=== PATIENT | female | born 1940 | race Two or more races ===

== ENCOUNTER 2016-07-16 20:13 | Inpatient (IN) | payer MEDICARE, MEDICAID ==
[~2016-07-16] VITALS: Ht 124.5 cm; Wt 54.4 kg
[~2016-07-16 20:13] MED LIST: ACETAMINOPHEN-1 EAC1 ORAL; AMBIEN10 M1 ORAL; AMLODIPINE BESYL5 MG ORAL; ASPIRIN81 M3 PO; AZOR 10-40 MG1 EACH ORAL; BENTYL10 MG ORAL; CARVEDILOL6.25 MG ORAL; FLONASE1 SPRAYS NASAL; FUROSEMIDE80 M1 ORAL; FUROSEMIDE80 MG ORAL; LINZESS290 MCG PO; LIPITOR20 MG ORAL; MONTELUKAST SOD10 MG ORAL; OMEPRAZOLE20 M2 ORAL; ROBAXIN500 MG PO; TRAMADOL HCL50 MG ORAL; TRIBENZOR 40-51 EACH ORAL; VITAMIN D5000 UNI1 PO; XANAX0.25 MG ORAL
[2016-07-16 20:59] VITALS: BP 187/82
[2016-07-16] MEDS ORDERED: Ketorolac 30mg Inj IV ONE (21:15)
[2016-07-16 22:14] LABS: APPEARANCE,URINE SLIGHTLY CLOUDY; BASOPHILS % (AUTO) 0.5 % (0.0-2.0); EOSINOPHILS % (AUTO) 1.1 % (0.0-3.0); KETONES,URINE NEGATIVE (NEGATIVE); LEUKOCYTE ESTERASE ,URINE NEGATIVE (NEGATIVE); LYMPHOCYTES % (AUTO) 25.5 % (20.0-45.0); MEAN CORPUSCULAR HEMOGLOBIN 31.3 PG (27.0-31.0); MEAN CORPUSCULAR HGB CONC 35.4 G/DL (32.0-36.0); MEAN CORPUSCULAR VOLUME 88 FL (80-99); MEAN PLATELET VOLUME 5.4 FL (6.5-10.1); MONOCYTES % (AUTO) 13.5 % (1.0-10.0); NEUTROPHILS % (AUTO) 59.5 % (45.0-75.0); NITRITE,URINE NEGATIVE (NEGATIVE); PH,URINE 8 (4.5-8.0); PLATELET COUNT 293 K/UL (150-450); PROTEIN,URINE NEGATIVE (NEGATIVE); RED BLOOD COUNT 3.58 M/UL (4.20-5.40); RED CELL DISTRIBUTION WIDTH 10.7 % (11.6-14.8); UROBILINOGEN,URINE NORMAL MG/DL (0.0-1.0); WHITE BLOOD COUNT 6.1 K/UL (4.8-10.8)
[2016-07-16 22:30] LABS: BACTERIA,URINE FEW /HPF; RBC,URINE 20-30 /HPF (0 - 2); SQUAMOUS EPITHELIAL CELL,UR FEW /LPF (NONE/OCC); WBC,URINE 0-2 /HPF (0 - 2)
[2016-07-16 22:41] LABS: ALANINE AMINOTRANSFERASE 16 U/L (3-33); ALBUMIN/GLOBULIN RATIO 1.5 (1.0-2.7); ASPARTATE AMINO TRANSFERASE 16 U/L (5-40); CALCIUM 8.4 mg/dL (8.6-10.2); CARBON DIOXIDE 24 mEQ/L (20-30); CREATININE 0.5 mg/dL (0.5-0.9); HEMOLYSIS 4; LIPASE 12 U/L (< 60); TOTAL PROTEIN 6.2 g/dL (6.6-8.7)
[2016-07-16 23:00] LABS: ANION GAP 16 (5-15); CHLORIDE 76 mEQ/L (98-107); POTASSIUM 3.1 mEQ/L (3.4-4.9)
[2016-07-16 23:02] VITALS: BP 133/80
[2016-07-16 23:03] LABS: SODIUM 116 mEQ/L (135-145)
[2016-07-17] VITALS (7 sets, daily range): BP systolic 136–181; BP diastolic 67–88
[2016-07-17] MEDS ORDERED: LEVOFLOXACIN750 MG ORAL (00:08)
[2016-07-17] MEDS ORDERED: PRAVASTATIN SOD20 M1 ORAL (00:08)
[2016-07-17] MEDS ORDERED: TRIBENZOR 40-11 EACH ORAL (00:08)
--- NOTE | 2016-07-17 00:16 | Emergency Room Report ---
History of Present Illness General Chief Complaint: Abdominal Pain Source: Patient Present Illness [facility] This is a 75-year-old female who presents with chief complaint abdominal pain. Onset for last couple days. Diffuse in nature. Sharp in nature. Pain is 8/10. Similar symptom in the past. Denies any vomiting or diarrhea. Denies any urinary complaint. Nothing made it better. Palpation made it worse. Allergies: Coded Allergies: PENICILLINS (Unverified Allergy, Unknown, 06/24/14) Patient History Past Medical History: see triage record, old chart reviewed Past Surgical History: other Pertinent Family History: none Social History: Denies: smoking Now: No Immunizations: other Reviewed Nursing Documentation: PMH: Agreed, PSxH: Agreed Nursing Documentation-PMH Hx Cardiac Problems: Yes - high cholesterol Hx Hypertension: Yes Hx Cancer: No Hx Gastrointestinal Problems: Yes - Gastritis Hx Neurological Problems: No Review of Systems Eye: Denies: blurred vision, eye pain ENT: Denies: ear pain, nose congestion, throat swelling Respiratory: Denies: cough, shortness of breath Cardiovascular: Denies: chest pain, palpitations Gastrointestinal: Reports: abdominal pain, Denies: diarrhea, nausea, vomiting Musculoskeletal: Denies: back pain, joint pain Skin: Denies: rash Neurological: Denies: headache, numbness Endocrine: Denies: increased thirst, increased urine Hematologic/Lymphatic: Denies: easy bruising All Other Systems: negative except mentioned in HPI Physical Exam Vital Signs Date Time Temp Pulse Resp B/P Pulse Ox O2 Delivery O2 Flow Rate FiO2 07/16/16 20:39 98.1 69 18 207/89 98 Room Air vitals with hypertension Sp02 EP Interpretation: reviewed, normal General Appearance: well appearing, no apparent distress, alert, thin Head: normocephalic, atraumatic Eyes: bilateral eye EOMI, bilateral eye PERRL ENT: hearing grossly normal, normal pharynx Neck: full range of motion, supple, no meningismus Respiratory: chest non-tender, lungs clear, normal breath sounds Cardiovascular #1: regular rate, rhythm, no murmur Gastrointestinal: normal bowel sounds, no mass, no organomegaly, no bruit, non- distended, tenderness - Diffuse Musculoskeletal: back normal, gait/station normal, normal range of motion Psychiatric: mood/affect normal Skin: warm/dry Medical Decision Making Diagnostic Impression: Primary Impression: Abdominal pain of unknown etiology Additional Impressions: Hyponatremia Hypertension Qualified Codes: I10 - Essential (primary) hypertension ER Course Patient with abdominal pain. Exam is unremarkable. Is soft. CT scan unremarkable. She does have multiple chronic appearing compression fractures area this may be causing the pain. No urinary tract infection. Sodium is low but she is asymptomatic. Will admit for monitoring and gentle IV fluid. Laboratory Tests Test 07/16/16 22:00 White Blood Count 6.1 K/UL (4.8-10.8) Red Blood Count 3.58 M/UL (4.20-5.40) L Hemoglobin 11.2 G/DL (12.0-16.0) L Hematocrit 31.7 % (37.0-47.0) L Mean Corpuscular Volume 88 FL (80-99) Mean Corpuscular Hemoglobin 31.3 PG (27.0-31.0) H Mean Corpuscular Hemoglobin Concent 35.4 G/DL (32.0-36.0) Red Cell Distribution Width 10.7 % (11.6-14.8) L Platelet Count 293 K/UL (150-450) Mean Platelet Volume 5.4 FL (6.5-10.1) L Neutrophils (%) (Auto) 59.5 % (45.0-75.0) Lymphocytes (%) (Auto) 25.5 % (20.0-45.0) Monocytes (%) (Auto) 13.5 % (1.0-10.0) H Eosinophils (%) (Auto) 1.1 % (0.0-3.0) Basophils (%) (Auto) 0.5 % (0.0-2.0) Urine Color Pale yellow Urine Appearance Slightly cloudy Urine pH 8 (4.5-8.0) Urine Specific [place] 1.015 (1.005-1.035) Urine Protein Negative (NEGATIVE) Urine Glucose (UA) Negative (NEGATIVE) Urine Ketones Negative (NEGATIVE) Urine Occult Blood 5+ (NEGATIVE) H Urine Nitrite Negative (NEGATIVE) Urine Bilirubin Negative (NEGATIVE) Urine Urobilinogen Normal MG/DL (0.0-1.0) Urine Leukocyte Esterase Negative (NEGATIVE) Urine RBC 20-30 /HPF (0 - 2) H Urine WBC 0-2 /HPF (0 - 2) Urine Squamous Epithelial Cells Few /LPF (NONE/OCC) Urine Bacteria Few /HPF (NONE) Sodium Level 116 mEQ/L (135-145) *L Potassium Level 3.1 mEQ/L (3.4-4.9) L Chloride Level 76 mEQ/L (98-107) L Carbon Dioxide Level 24 mEQ/L (20-30) Anion Gap 16 (5-15) H Blood Urea Nitrogen 8 mg/dL (7-23) Creatinine 0.5 mg/dL (0.5-0.9) Estimat Glomerular Filtration Rate mL/min (>60) Glucose Level 101 mg/dL (74-106) Calcium Level 8.4 mg/dL (8.6-10.2) L Total Bilirubin 0.6 mg/dL (0.0-1.2) Aspartate Amino Transf (AST/SGOT) 16 U/L (5-40) Alanine Aminotransferase (ALT/SGPT) 16 U/L (3-33) Alkaline Phosphatase 97 U/L (35-104) Total Protein 6.2 g/dL (6.6-8.7) L Albumin 3.8 g/dL (3.5-5.2) Globulin 2.4 g/dL Albumin/Globulin Ratio 1.5 (1.0-2.7) Lipase 12 U/L (< 60) Lab Results Impression labs with hyponatremia CT/MRI/US Diagnostic Results CT/MRI/US Diagnostic Results : Imaging Test Ordered: CT abdomen and pelvis Impression read by radiologist. No obstruction. Diverticulosis. Compression fractures, chronic. Last Vital Signs Date Time Temp Pulse Resp B/P Pulse Ox O2 Delivery O2 Flow Rate FiO2 07/16/16 23:02 98.1 73 18 133/80 98 Room Air Status: improved Disposition: ADMITTED INPATIENT Condition: Serious Referrals: [facility],REFERRING (PCP) CARLO HERNDON M.D. Jul 17, 2016 00:16
[2016-07-17] MEDS ORDERED: Miralax 17gm pkt ORAL PRN (02:15)
[2016-07-17] MEDS ORDERED: Mylanta II UD 30ml ORAL PRN (02:15)
[2016-07-17] MEDS ORDERED: Morphine Sulfate 2mg/ml Inj IVP PRN (02:15)
[2016-07-17] MEDS ORDERED: Nitroglycerin Subl 0.4mg tab (Bottle Of 25) SL PRN (02:15)
[2016-07-17] MEDS: NS IV SCH ×2 (02:38→15:43)
[2016-07-17] MEDS: KCL IV SCH ×2 (02:38→15:43)
[2016-07-17] MEDS: D5 IV SCH ×2 (02:38→15:43)
[2016-07-17] MEDS: ALPRAZolam 0.25mg tab ORAL SCH ×2 (08:28→17:58)
[2016-07-17] MEDS: Pantoprazole Inj IVP SCH (08:29)
[2016-07-17] MEDS: Heparin 5000 units/ml inj SUBQ SCH ×2 (08:38→20:55)
--- NOTE | 2016-07-17 09:22 | Diagnostic Imaging Report ---
Clinical Indication: Abdominal pain Technique: No oral contrast utilized, per emergency room physician request IV administration nonionic contrast. Venous phase spiral acquisition obtained through the abdomen and pelvis. Multiplanar reconstructions were generated. Total dose length product T12 mGycm. CTDIvol(s) 15 mGy Comparison: 10/04/2014 Findings: The appendix is normal. There is sigmoid diverticulosis. No evidence of diverticulitis. No small bowel distention. No free or loculated intraperitoneal air or fluid is evident. The distal esophagus, stomach, duodenum are unremarkable. The gallbladder and bile ducts are unremarkable. The liver, pancreas, spleen, adrenals are unremarkable. The kidneys demonstrate subcentimeter low-attenuation lesions which are too small to characterize of most likely represent benign cortical cysts, unchanged. No retroperitoneal or mesenteric mass or adenopathy. No pelvic mass or adenopathy. Uterus and ovaries are unremarkable. The heart is mildly enlarged. Atelectatic changes are seen at both lung bases. The bones demonstrate evidence of prior T9 vertebral augmentation procedure for compression fracture. There is some extrusion of cement into the epidural space posterior to the posterior margin of the vertebral body, but this does not appear to significantly narrow spinal canal Compression fracture deformities are also seen involving the T10, T11, T12, and L1 and to a lesser extent the L2 and L3 vertebral bodies. There are laminectomy defects of L4 and L5, with resultant ectasia of the thecal sac. Impression: No acute process Diverticulosis without evidence of diverticulitis Multiple vertebral body compression fracture deformities, age indeterminate. Evidence of prior T9 vertebral augmentation procedure. Evidence of prior L4 and L5 laminectomies Cardiomegaly This agrees with the preliminary interpretation provided overnight by [facility] teleradiology service. The CT scanner at [facility] is accredited by the [employer] and the scans are performed using protocols designed to limit radiation exposure to as low as reasonably achievable to attain images of sufficient resolution adequate for diagnostic evaluation.
[2016-07-17] MEDS: Carvedilol 6.25mg Tab ORAL SCH ×2 (09:48→20:56)
[2016-07-17] MEDS: Methocarbamol 500mg tab ORAL SCH ×4 (12:14→21:51)
[2016-07-17 14:00] LABS: URIC ACID 2.2 mg/dL (3.0-7.5)
[2016-07-17 14:12] LABS: THYROID STIMULATING HORMONE 1.05 uIU/mL (0.300-4.500)
[2016-07-17] MEDS: Lactulose 10gm/15ml UDC ORAL SCH (17:57)
--- NOTE | 2016-07-17 18:20 | History and Physical ---
History of Present Illness General Date patient seen: Jul 17, 2016 Reason for Hospitalization: Abdominal Pain Present Illness HPI 75-year-old female with hx of osteoporosis, htn, presents with chief complaint abdominal pain for the last couple days. Diffuse and sharp in nature 12/07. she had similar symptom in the past. Denies any vomiting or diarrhea. Denies any urinary complaint. Nothing made it better. Palpation made it worse. Her Na was 116, she is admitted for w/u of her abdominal pain and hyponatremia. Allergies: Coded Allergies: PENICILLINS (Unverified Allergy, Unknown, 06/24/14) Medication History Scheduled Alprazolam* (Xanax*), 0.25 MG ORAL BID, (Reported) Amlodipine Bes/Olmesartan Med 10-40 Mg Tablet (Vivian 10-40 Mg Tablet), 1 TAB ORAL DAILY, (Reported) Amlodipine Besylate* (Amlodipine Besylate*), 5 MG ORAL DAILY Aspirin (Aspirin), 81 MG PO DAILY Atorvastatin Calcium* (Lipitor*), 20 MG ORAL BEDTIME, (Reported) Carvedilol* (Carvedilol*), 6.25 MG ORAL EVERY 12 HOURS, (Reported) Dicyclomine Hcl* (Bentyl*), 20 MG ORAL TID, (Reported) Fluticasone Propionate (Fluticasone Propionate), 1 SPRAY NASAL DAILY, (Reported) Furosemide* (Lasix*), 80 MG ORAL DAILY, (Reported) Levofloxacin* (Levofloxacin*), 250 MG ORAL DAILY, (Reported) Linaclotide (Linzess), 290 MCG PO DAILY, (Reported) Methocarbamol* (Robaxin*), 500 MG PO QID, (Reported) Montelukast Sodium* (Montelukast Sodium*), 10 MG ORAL DAILY, (Reported) Olmesartan Med/Amlodipine/Hctz 40-10-12.5MG (Tribenzor 40-10-12.5 Mg Tablet), Unknown Dose ORAL DAILY, (Reported) Omeprazole (Omeprazole), 20 MG ORAL DAILY, (Reported) Pravastatin Sod* (Pravastatin Sod*), 20 MG ORAL BEDTIME, (Reported) Scheduled PRN Acetaminophen With Codeine (T#3) (Tylenol #3 Tab*), 1 TAB ORAL QID PRN for For Pain, (Reported) Tramadol Hcl* (Ultram*), 50 MG ORAL Q6H PRN for For Pain, (Reported) Zolpidem Tartrate* (Ambien*), 10 MG ORAL HS PRN for Insomnia, (Reported) Miscellaneous Medications Cholecalciferol (Vitamin D3) (Vitamin D), 5,000 UNIT PO, (Reported) Patient History Healthcare decision maker Resuscitation status Full Code Advanced Directive on File No Past Medical/Surgical History Past Medical/Surgical History: (1) Hypertension Review of Systems All Other Systems: negative except mentioned in HPI Physical Exam General Appearance: WD/WN Respiratory/Chest: chest wall non-tender, lungs clear Cardiovascular/Chest: normal peripheral pulses, normal rate Abdomen: normal bowel sounds, non tender Genitourinary/Rectal: normal genital exam, normal rectal exam Extremities: normal range of motion Last 24 Hour Vital Signs Date Time Temp Pulse Resp B/P Pulse Ox O2 Delivery O2 Flow Rate FiO2 07/17/16 17:00 97.2 57 18 145/67 100 Room Air 07/17/16 12:00 97.2 57 18 145/67 100 Room Air 07/17/16 09:48 75 163/91 07/17/16 09:00 97.2 74 18 181/88 100 Room Air 07/17/16 08:28 75 188/80 07/17/16 02:20 158/80 07/17/16 02:00 96.4 75 18 178/77 98 Room Air 07/17/16 00:34 98.1 72 18 160/73 98 Room Air 07/17/16 00:24 98.1 72 18 160/73 98 Room Air 07/16/16 23:02 98.1 73 18 133/80 98 Room Air 07/16/16 22:42 98.1 07/16/16 20:59 98.1 74 18 187/82 98 Room Air 07/16/16 20:39 98.1 69 18 207/89 98 Room Air Intake and Output 07/16/16 07/17/16 19:00 07:00 Intake Total 1325 ml Balance 1325 ml Intake IV Total 1325 ml # Voids 5 Laboratory Tests Test 07/16/16 22:00 07/17/16 09:05 White Blood Count 6.1 K/UL (4.8-10.8) Red Blood Count 3.58 M/UL (4.20-5.40) L Hemoglobin 11.2 G/DL (12.0-16.0) L Hematocrit 31.7 % (37.0-47.0) L Mean Corpuscular Volume 88 FL (80-99) Mean Corpuscular Hemoglobin 31.3 PG (27.0-31.0) H Mean Corpuscular Hemoglobin Concent 35.4 G/DL (32.0-36.0) Red Cell Distribution Width 10.7 % (11.6-14.8) L Platelet Count 293 K/UL (150-450) Mean Platelet Volume 5.4 FL (6.5-10.1) L Neutrophils (%) (Auto) 59.5 % (45.0-75.0) Lymphocytes (%) (Auto) 25.5 % (20.0-45.0) Monocytes (%) (Auto) 13.5 % (1.0-10.0) H Eosinophils (%) (Auto) 1.1 % (0.0-3.0) Basophils (%) (Auto) 0.5 % (0.0-2.0) Urine Color Pale yellow Urine Appearance Slightly cloudy Urine pH 8 (4.5-8.0) Urine Specific [place] 1.015 (1.005-1.035) Urine Protein Negative (NEGATIVE) Urine Glucose (UA) Negative (NEGATIVE) Urine Ketones Negative (NEGATIVE) Urine Occult Blood 5+ (NEGATIVE) H Urine Nitrite Negative (NEGATIVE) Urine Bilirubin Negative (NEGATIVE) Urine Urobilinogen Normal MG/DL (0.0-1.0) Urine Leukocyte Esterase Negative (NEGATIVE) Urine RBC 20-30 /HPF (0 - 2) H Urine WBC 0-2 /HPF (0 - 2) Urine Squamous Epithelial Cells Few /LPF (NONE/OCC) Urine Bacteria Few /HPF (NONE) Sodium Level 116 mEQ/L (135-145) *L Potassium Level 3.1 mEQ/L (3.4-4.9) L Chloride Level 76 mEQ/L (98-107) L Carbon Dioxide Level 24 mEQ/L (20-30) Anion Gap 16 (5-15) H Blood Urea Nitrogen 8 mg/dL (7-23) Creatinine 0.5 mg/dL (0.5-0.9) Estimat Glomerular Filtration Rate mL/min (>60) Glucose Level 101 mg/dL (74-106) Calcium Level 8.4 mg/dL (8.6-10.2) L Total Bilirubin 0.6 mg/dL (0.0-1.2) Aspartate Amino Transf (AST/SGOT) 16 U/L (5-40) Alanine Aminotransferase (ALT/SGPT) 16 U/L (3-33) Alkaline Phosphatase 97 U/L (35-104) Total Protein 6.2 g/dL (6.6-8.7) L Albumin 3.8 g/dL (3.5-5.2) Globulin 2.4 g/dL Albumin/Globulin Ratio 1.5 (1.0-2.7) Lipase 12 U/L (< 60) Plasma/Serum Osmolality Pending Uric Acid 2.2 mg/dL (3.0-7.5) L Thyroid Stimulating Hormone (TSH) 1.050 uIU/mL (0.300-4.500) Free Thyroxine 2.05 ng/dL (0.86-1.85) H Cortisol Pending Height (Feet): 4 Height (Inches): 1.00 Weight (Pounds): 120 Medications Current Medications Medications (Trade) Dose Ordered Sig/Vivian Route PRN Reason Start Time Stop Time Status Last Admin Dose Admin Acetaminophen (Tylenol) 650 mg Q4H PRN ORAL fever 07/17/16 02:15 08/16/16 02:14 Al Hydroxide/Mg Hydroxide (Mylanta II) 30 ml Q6H PRN ORAL dyspepsia 07/17/16 02:15 08/16/16 02:14 Alprazolam (Xanax) 0.25 mg BID ORAL 07/17/16 09:00 07/24/16 08:59 07/17/16 17:58 Amlodipine Besylate (Norvasc) 5 mg DAILY ORAL 07/17/16 09:00 08/16/16 08:59 07/17/16 08:28 Carvedilol (Coreg) 6.25 mg EVERY 12 HOURS ORAL 07/17/16 09:00 08/16/16 08:59 07/17/16 09:48 Dextrose (Dextrose 50%) STAT PRN IV Hypoglycemia 07/17/16 02:15 08/16/16 02:14 Dextrose/ Electrolytes (D5NS W/KCl 20meq 1000ml) 1,000 ml @ 75 mls/hr [id number] IV 07/17/16 02:30 08/16/16 02:29 07/17/16 15:43 Diphenhydramine HCl (Benadryl) 25 mg Q6H PRN ORAL Itching/Pruritis 07/17/16 02:15 08/16/16 02:14 Docusate Sodium (Colace) 250 mg DAILY ORAL 07/18/16 09:00 08/17/16 08:59 Heparin Sodium (Porcine) (Heparin 5000 units/ml) 5,000 units EVERY 12 HOURS SUBQ 07/17/16 09:00 08/16/16 08:59 07/17/16 08:38 Lactulose (Cephulac) 10 gm THREE TIMES A DAY ORAL 07/17/16 18:00 08/16/16 17:59 07/17/16 17:57 Methocarbamol (Robaxin) 500 mg QID ORAL 07/17/16 09:00 08/16/16 08:59 07/17/16 17:58 Morphine Sulfate (Morphine Sulfate) 2 mg Q4H PRN IVP severe Pain (Pain Scale 7-10) 07/17/16 02:15 07/24/16 02:14 07/17/16 09:48 Nitroglycerin (Ntg) 0.4 mg Q5M X 3 DOSES PRN SL Prn Chest Pain 07/17/16 02:15 08/16/16 02:14 Ondansetron HCl (Zofran) 4 mg Q6H PRN IVP Nausea & Vomiting 07/17/16 02:15 08/16/16 02:14 07/17/16 09:48 Pantoprazole 40 mg 40 mg DAILY IVP 07/17/16 09:00 08/16/16 08:59 07/17/16 08:29 Polyethylene Glycol (Miralax) 17 gm HSPRN PRN ORAL Constipation 07/17/16 02:15 08/16/16 02:14 Temazepam (Restoril) 15 mg HSPRN PRN ORAL Insomnia 07/17/16 02:15 07/24/16 02:14 Assessment/Plan Problem List: (1) Hyponatremia ICD Codes: E87.1 - Hypo-osmolality and hyponatremia SNOMED: 27619327 (2) Abdominal pain ICD Codes: R10.9 - Abdominal pain SNOMED: 14075134 (3) Hypertension ICD Codes: I10 - Hypertension SNOMED: 07325708 Qualifiers: Qualified Codes: I10 - Essential (primary) hypertension (4) Intractable back pain ICD Codes: M54.9 - Dorsalgia, unspecified SNOMED: 166159157 Assessment/Plan NPO GI evaluation Hyponatremia w/u dvt prophylaxis pain management AMBER GA Jul 17, 2016 18:20
[2016-07-17 22:21] LABS: APPEARANCE,URINE CLEAR; KETONES,URINE NEGATIVE (NEGATIVE); LEUKOCYTE ESTERASE ,URINE NEGATIVE (NEGATIVE); NITRITE,URINE NEGATIVE (NEGATIVE); PH,URINE 8 (4.5-8.0); PROTEIN,URINE NEGATIVE (NEGATIVE); UROBILINOGEN,URINE NORMAL MG/DL (0.0-1.0)
[2016-07-17 22:32] LABS: BACTERIA,URINE FEW /HPF; SQUAMOUS EPITHELIAL CELL,UR FEW /LPF (NONE/OCC); WBC,URINE 0-2 /HPF (0 - 2)
--- NOTE | 2016-07-17 23:38 | Consultation ---
DATE OF CONSULTATION: 07/17/2016 CHIEF COMPLAINT: Abdominal pain. HISTORY OF PRESENT ILLNESS: This is a very pleasant 75-year-old female, who came to the hospital complaining of abdominal pain. The patient had a CT of the abdomen and pelvis done in the emergency room, which showed no acute abdominal finding. The patient's sodium was found to be very low and the patient was admitted for hyponatremia. The patient states that she had a colonoscopy and endoscopy many years ago. Denies any nausea or vomiting. Denies any dysphagia. Denies any odynophagia. No melena. No hematochezia. No weight loss. The patient complained of constipation. Last bowel movement was about two and half days ago. PAST MEDICAL HISTORY: 1. Hypertension. 2. Anxiety. 3. Gastritis. 4. History of femur fracture. 5. Osteoporosis. PAST SURGICAL HISTORY: Laminectomy. ALLERGIES: To penicillin. MEDICATIONS: Please see medication reconciliation list. SOCIAL HISTORY: The patient denies any tobacco, alcohol, or drug abuse. FAMILY HISTORY: Noncontributory. REVIEW OF SYSTEMS: A 10-point review of system was performed and pertinent positives in history of present illness. PHYSICAL EXAMINATION: GENERAL: This is a well-developed female, looking mildly anxious. VITAL SIGNS: Temperature is 97.2 degrees, pulse is 57, respirations 18, and blood pressure 145/67. HEENT: Normocephalic and atraumatic. Sclerae icterus. NECK: Supple. No lymphadenopathy. CARDIOVASCULAR: Regular rhythm. Plus S1 and S2. LUNGS: Decreased breath sounds bilaterally based on the supine exam. ABDOMEN: Soft, mildly distended, and mildly tympanic to percussion. Bowel sounds are hypoactive. No rebound. No guarding. No peritoneal sign. EXTREMITIES: No cyanosis. No clubbing. No edema. LABORATORY DATA: White count 6.1, hemoglobin 11.2, hematocrit 31.7, and platelet count is 293,000. Sodium is 116 and chloride was 76. Liver function is grossly normal. ASSESSMENT AND PLAN: 1. Hyponatremia. 2. Normocytic anemia. 3. Constipation. PLAN: 1. Anemia workup. 2. Laxative for constipation. 3. Daily exam. 4. Consider doing endoscopy and colonoscopy. If the patient agrees, then the sodium is corrected. Trent Ashley Quintero DR: JILLIAN JOB#: [id number] CC:
[2016-07-18] VITALS: BP 140/71
[2016-07-18 03:57] VITALS: BP 146/66
[2016-07-18] MEDS: D5 IV SCH ×2 (04:51→18:30)
[2016-07-18] MEDS: NS IV SCH ×2 (04:51→18:30)
[2016-07-18] MEDS: KCL IV SCH ×2 (04:51→18:30)
[2016-07-18 07:14] LABS: BASOPHILS % (AUTO) 1.1 % (0.0-2.0); EOSINOPHILS % (AUTO) 1.6 % (0.0-3.0); LYMPHOCYTES % (AUTO) 31.3 % (20.0-45.0); MEAN CORPUSCULAR HEMOGLOBIN 31.6 PG (27.0-31.0); MEAN CORPUSCULAR HGB CONC 34.6 G/DL (32.0-36.0); MEAN CORPUSCULAR VOLUME 91 FL (80-99); MEAN PLATELET VOLUME 5.3 FL (6.5-10.1); MONOCYTES % (AUTO) 14.1 % (1.0-10.0); NEUTROPHILS % (AUTO) 51.9 % (45.0-75.0); PLATELET COUNT 284 K/UL (150-450); RED BLOOD COUNT 3.48 M/UL (4.20-5.40); RED CELL DISTRIBUTION WIDTH 11.2 % (11.6-14.8); WHITE BLOOD COUNT 4.8 K/UL (4.8-10.8)
[2016-07-18 07:28] LABS: MAGNESIUM 1.6 mg/dL (1.7-2.5); PHOSPHORUS 2.3 mg/dL (2.5-4.8)
[2016-07-18 07:32] LABS: ALANINE AMINOTRANSFERASE 20 U/L (3-33); ALBUMIN/GLOBULIN RATIO 1.3 (1.0-2.7); AMYLASE 22 U/L (10-110); ANION GAP 13 (5-15); ASPARTATE AMINO TRANSFERASE 21 U/L (5-40); CALCIUM 8.6 mg/dL (8.6-10.2); CARBON DIOXIDE 23 mEQ/L (20-30); CHLORIDE 91 mEQ/L (98-107); CREATININE 0.5 mg/dL (0.5-0.9); HEMOLYSIS 9; LIPASE 13 U/L (< 60); SODIUM 127 mEQ/L (135-145); TOTAL PROTEIN 5.8 g/dL (6.6-8.7)
[2016-07-18 08:02] LABS: HEMOLYSIS 6; IRON 68 ug/dL (37-145); TOTAL IRON BINDING CAPACITY 266 ug/dL (250-400)
[2016-07-18 08:12] LABS: CORTISOL LC 13.4 ug/dL (.)
[2016-07-18 08:32] VITALS: BP 149/73
[2016-07-18] MEDS: Heparin 5000 units/ml inj SUBQ SCH ×2 (10:45→20:52)
[2016-07-18] MEDS: Methocarbamol 500mg tab ORAL SCH ×4 (10:47→20:51)
[2016-07-18] MEDS: ALPRAZolam 0.25mg tab ORAL SCH ×2 (10:47→17:05)
[2016-07-18] MEDS: Pantoprazole Inj IVP SCH (10:48)
[2016-07-18] MEDS: Carvedilol 6.25mg Tab ORAL SCH ×2 (10:50→20:50)
[2016-07-18] MEDS: Docusate 250mg cap ORAL SCH (10:52)
[2016-07-18] MEDS: Lactulose 10gm/15ml UDC ORAL SCH ×3 (10:52→17:06)
[2016-07-18 11:20] VITALS: BP 170/81
--- NOTE | 2016-07-18 13:40 | General Progress Note ---
Assessment/Plan Problem List: (1) Anemia ICD Codes: D64.9 - Anemia, unspecified SNOMED: 722983717 (2) Diverticulosis ICD Codes: K57.90 - Diverticulosis of intestine, part unspecified, without perforation or abscess without bleeding SNOMED: 365750586 (3) Hyponatremia ICD Codes: E87.1 - Hypo-osmolality and hyponatremia SNOMED: 87253382 (4) Abdominal pain ICD Codes: R10.9 - Abdominal pain SNOMED: 34232363 (5) Constipation ICD Codes: K59.00 - Constipation, unspecified SNOMED: 42774409 Assessment/Plan advance diet fu labs fu nephrology EGD and colonoscopy when NA is corrected either as in or out patient Subjective ROS Limited/Unobtainable: Yes Allergies: Coded Allergies: PENICILLINS (Unverified Allergy, Unknown, 06/24/14) Subjective no event Objective Last 24 Hour Vital Signs Date Time Temp Pulse Resp B/P Pulse Ox O2 Delivery O2 Flow Rate FiO2 07/18/16 11:20 96.8 63 18 170/81 99 Room Air 07/18/16 10:51 63 170/81 07/18/16 10:50 63 170/81 07/18/16 08:32 96.9 64 20 149/73 100 Room Air 07/18/16 03:57 97.4 57 18 146/66 100 Room Air 07/18/16 00:00 97.3 57 18 140/71 100 Room Air 07/17/16 20:56 61 159/73 07/17/16 20:00 97.0 60 20 136/85 100 Room Air 07/17/16 17:00 97.2 57 18 145/67 100 Room Air Intake and Output 07/17/16 07/18/16 19:00 07:00 Intake Total 900 ml 300 ml Output Total 2000 ml Balance 900 ml -1700 ml Intake IV Total 900 ml 300 ml Output Urine Total 2000 ml # Voids 3 2 Laboratory Tests 07/17/16 21:00: Urine Color Pale yellow, Urine Appearance Clear, Urine pH 8, Urine Specific [place] 1.010, Urine Protein Negative, Urine Glucose (UA) Negative, Urine Ketones Negative, Urine Occult Blood 4+H, Urine Nitrite Negative, Urine Bilirubin Negative, Urine Urobilinogen Normal, Urine Leukocyte Esterase Negative , Urine RBC 5-10H, Urine WBC 0-2, Urine Squamous Epithelial Cells Few, Urine Transitional Epithelial Cells , Urine Bacteria Few, Urine Osmolality [Pending], Urine Random Sodium 80 07/18/16 04:30: White Blood Count 4.8, Red Blood Count 3.48L, Hemoglobin 11.0L, Hematocrit 31.7L , Mean Corpuscular Volume 91, Mean Corpuscular Hemoglobin 31.6H, Mean Corpuscular Hemoglobin Concent 34.6, Red Cell Distribution Width 11.2L, Platelet Count 284, Mean Platelet Volume 5.3L, Neutrophils (%) (Auto) 51.9, Lymphocytes (%) (Auto) 31.3, Monocytes (%) (Auto) 14.1H, Eosinophils (%) (Auto) 1.6, Basophils (%) (Auto) 1.1, Activated Partial Thromboplast Time 35H, Sodium Level 127L, Potassium Level 4.0, Chloride Level 91L, Carbon Dioxide Level 23, Anion Gap 13, Blood Urea Nitrogen 5L, Creatinine 0.5, Estimat Glomerular Filtration Rate , Glucose Level 106, Calcium Level 8.6, Phosphorus Level 2.3L, Magnesium Level 1.6L, Iron Level 68, Total Iron Binding Capacity 266, Percent Iron Saturation 26, Unsaturated Iron Binding 198, Total Bilirubin 0.5, Aspartate Amino Transf (AST/SGOT) 21, Alanine Aminotransferase (ALT/SGPT) 20, Alkaline Phosphatase 81, Total Protein 5.8L, Albumin 3.3L, Globulin 2.5, Albumin /Globulin Ratio 1.3, Amylase Level 22, Lipase 13, Carcinoembryonic Antigen 4.6H , Vitamin B12 Level > 2000H, Folate [Pending] 07/18/16 06:40: Plasma/Serum Osmolality [Pending] Height (Feet): 4 Height (Inches): 1.00 Weight (Pounds): 120 General Appearance: alert EENT: normal ENT inspection Neck: supple Cardiovascular: normal rate Respiratory/Chest: lungs clear Abdomen: normal bowel sounds, non tender, soft Extremities: non-tender NATO SLOAN Jul 18, 2016 13:40
[2016-07-18 16:00] VITALS: BP 118/70
[2016-07-18 20:00] VITALS: BP 133/75
--- NOTE | 2016-07-18 20:47 | General Progress Note ---
Progress Note Progress Note [id number] patient was seen this morning at 8:30 am and full consult dictated KJ HERNANDEZ Jul 18, 2016 20:47
[2016-07-19] VITALS: BP 134/48
[2016-07-19 03:55] VITALS: BP 138/52
[2016-07-19 06:50] LABS: BASOPHILS % (AUTO) 1.1 % (0.0-2.0); EOSINOPHILS % (AUTO) 3.9 % (0.0-3.0); LYMPHOCYTES % (AUTO) 28.1 % (20.0-45.0); MEAN CORPUSCULAR HEMOGLOBIN 31.3 PG (27.0-31.0); MEAN CORPUSCULAR HGB CONC 34.1 G/DL (32.0-36.0); MEAN CORPUSCULAR VOLUME 92 FL (80-99); MEAN PLATELET VOLUME 5.1 FL (6.5-10.1); MONOCYTES % (AUTO) 15.7 % (1.0-10.0); NEUTROPHILS % (AUTO) 51.2 % (45.0-75.0); PLATELET COUNT 259 K/UL (150-450); RED BLOOD COUNT 3.25 M/UL (4.20-5.40); RED CELL DISTRIBUTION WIDTH 11.5 % (11.6-14.8); WHITE BLOOD COUNT 4.9 K/UL (4.8-10.8)
[2016-07-19 07:06] LABS: ALANINE AMINOTRANSFERASE 19 U/L (3-33); ALBUMIN/GLOBULIN RATIO 1.2 (1.0-2.7); ANION GAP 11 (5-15); ASPARTATE AMINO TRANSFERASE 17 U/L (5-40); CARBON DIOXIDE 22 mEQ/L (20-30); CHLORIDE 98 mEQ/L (98-107); CREATININE 0.4 mg/dL (0.5-0.9); HEMOLYSIS 1; POTASSIUM 4.2 mEQ/L (3.4-4.9); SODIUM 131 mEQ/L (135-145); TOTAL PROTEIN 5.4 g/dL (6.6-8.7)
[2016-07-19] MEDS: Heparin 5000 units/ml inj SUBQ SCH ×2 (08:37→21:22)
[2016-07-19] MEDS: Lactulose 10gm/15ml UDC ORAL SCH ×3 (08:41→18:56)
[2016-07-19 08:42] VITALS: BP 160/77
[2016-07-19] MEDS: Pantoprazole Inj IVP SCH (08:46)
[2016-07-19] MEDS: ALPRAZolam 0.25mg tab ORAL SCH ×2 (08:46→19:01)
[2016-07-19] MEDS: Methocarbamol 500mg tab ORAL SCH ×4 (08:47→21:20)
[2016-07-19] MEDS: KCL IV SCH ×2 (08:49→21:19)
[2016-07-19] MEDS: D5 IV SCH ×2 (08:49→21:19)
[2016-07-19] MEDS: NS IV SCH ×2 (08:49→21:19)
[2016-07-19] MEDS: Carvedilol 6.25mg Tab ORAL SCH ×2 (08:50→21:21)
--- NOTE | 2016-07-19 11:37 | General Progress Note ---
Assessment/Plan Problem List: (1) Anemia ICD Codes: D64.9 - Anemia, unspecified SNOMED: 177249930 (2) Diverticulosis ICD Codes: K57.90 - Diverticulosis of intestine, part unspecified, without perforation or abscess without bleeding SNOMED: 629828453 (3) Hyponatremia ICD Codes: E87.1 - Hypo-osmolality and hyponatremia SNOMED: 66644690 (4) Abdominal pain ICD Codes: R10.9 - Abdominal pain SNOMED: 22059771 (5) Constipation ICD Codes: K59.00 - Constipation, unspecified SNOMED: 06761989 Assessment/Plan fu labs fu nephrology EGD and colonoscopy for tomorrow Subjective ROS Limited/Unobtainable: Yes Allergies: Coded Allergies: PENICILLINS (Unverified Allergy, Unknown, 06/24/14) Subjective no event Objective Last 24 Hour Vital Signs Date Time Temp Pulse Resp B/P Pulse Ox O2 Delivery O2 Flow Rate FiO2 07/19/16 08:50 81 147/71 07/19/16 08:50 81 147/71 07/19/16 08:42 97.3 64 18 160/77 100 Room Air 07/19/16 03:55 97.2 54 18 138/52 100 Room Air 07/19/16 00:00 96.6 56 18 134/48 100 Room Air 07/18/16 20:50 63 133/75 07/18/16 20:00 96.9 63 18 133/75 100 Room Air 07/18/16 16:00 96.4 68 16 118/70 98 Room Air Intake and Output 07/18/16 07/19/16 19:00 07:00 Intake Total 847.5 ml 1265 ml Output Total 200 ml Balance 647.5 ml 1265 ml Intake Oral 360 ml 440 ml IV Total 487.5 ml 825 ml Output Urine Total 200 ml # Voids 1 5 Laboratory Tests 07/18/16 19:30: Urine Osmolality [Pending], Urine Creatinine 60.6 07/19/16 05:30: White Blood Count 4.9, Red Blood Count 3.25L, Hemoglobin 10.2L, Hematocrit 29.8L , Mean Corpuscular Volume 92, Mean Corpuscular Hemoglobin 31.3H, Mean Corpuscular Hemoglobin Concent 34.1, Red Cell Distribution Width 11.5L, Platelet Count 259, Mean Platelet Volume 5.1L, Neutrophils (%) (Auto) 51.2, Lymphocytes (%) (Auto) 28.1, Monocytes (%) (Auto) 15.7H, Eosinophils (%) (Auto) 3.9H, Basophils (%) (Auto) 1.1, Sodium Level 131L, Potassium Level 4.2, Chloride Level 98, Carbon Dioxide Level 22, Anion Gap 11, Blood Urea Nitrogen 7 , Creatinine 0.4L, Estimat Glomerular Filtration Rate , Glucose Level 95, Calcium Level 8.0L, Total Bilirubin 0.3, Aspartate Amino Transf (AST/SGOT) 17, Alanine Aminotransferase (ALT/SGPT) 19, Alkaline Phosphatase 76, Total Protein 5.4L, Albumin 3.0L, Globulin 2.4, Albumin/Globulin Ratio 1.2 Height (Feet): 4 Height (Inches): 1.00 Weight (Pounds): 120 General Appearance: alert EENT: normal ENT inspection Neck: supple Cardiovascular: normal rate Respiratory/Chest: decreased breath sounds Abdomen: normal bowel sounds, non tender, soft Extremities: non-tender NATO SLOAN Jul 19, 2016 11:37
[2016-07-19] MEDS: Docusate 250mg cap ORAL SCH (11:50)
--- NOTE | 2016-07-19 11:55 | Nephrology Progress Note ---
Assessment/Plan Assessment 1.Hypovolemic hyponatremia 2.hypocalcemia 3.malnutrition 4.intractable nausea and vomiting 5.HTN Plan Plan to continue current iv monitoring electrolyte closely check prealbumin check vit d replace electrolyte Subjective Constitutional: Reports: no symptoms HEENT: Reports: no symptoms Genitourinary: Reports: no symptoms Neurologic/Psychiatric: Reports: no symptoms Subjective alert and wake no CP or SOB Objective Objective Last 24 Hour Vital Signs Date Time Temp Pulse Resp B/P Pulse Ox O2 Delivery O2 Flow Rate FiO2 07/19/16 08:50 81 147/71 07/19/16 08:50 81 147/71 07/19/16 08:42 97.3 64 18 160/77 100 Room Air 07/19/16 03:55 97.2 54 18 138/52 100 Room Air 07/19/16 00:00 96.6 56 18 134/48 100 Room Air 07/18/16 20:50 63 133/75 07/18/16 20:00 96.9 63 18 133/75 100 Room Air 07/18/16 16:00 96.4 68 16 118/70 98 Room Air Intake and Output 07/18/16 07/19/16 19:00 07:00 Intake Total 847.5 ml 1265 ml Output Total 200 ml Balance 647.5 ml 1265 ml Intake Oral 360 ml 440 ml IV Total 487.5 ml 825 ml Output Urine Total 200 ml # Voids 1 5 Laboratory Tests 07/18/16 19:30: Urine Osmolality [Pending], Urine Creatinine 60.6 07/19/16 05:30: White Blood Count 4.9, Red Blood Count 3.25L, Hemoglobin 10.2L, Hematocrit 29.8L , Mean Corpuscular Volume 92, Mean Corpuscular Hemoglobin 31.3H, Mean Corpuscular Hemoglobin Concent 34.1, Red Cell Distribution Width 11.5L, Platelet Count 259, Mean Platelet Volume 5.1L, Neutrophils (%) (Auto) 51.2, Lymphocytes (%) (Auto) 28.1, Monocytes (%) (Auto) 15.7H, Eosinophils (%) (Auto) 3.9H, Basophils (%) (Auto) 1.1, Sodium Level 131L, Potassium Level 4.2, Chloride Level 98, Carbon Dioxide Level 22, Anion Gap 11, Blood Urea Nitrogen 7 , Creatinine 0.4L, Estimat Glomerular Filtration Rate , Glucose Level 95, Calcium Level 8.0L, Total Bilirubin 0.3, Aspartate Amino Transf (AST/SGOT) 17, Alanine Aminotransferase (ALT/SGPT) 19, Alkaline Phosphatase 76, Total Protein 5.4L, Albumin 3.0L, Globulin 2.4, Albumin/Globulin Ratio 1.2 Height (Feet): 4 Height (Inches): 1.00 Weight (Pounds): 120 Objective HEENT: Normocephalic and atraumatic. Sclerae icterus. NECK: Supple. No lymphadenopathy. CARDIOVASCULAR: Regular rhythm. Plus S1 and S2. LUNGS: Decreased breath sounds bilaterally based on the supine exam. ABDOMEN: Soft, mildly distended, and mildly tympanic to percussion. Bowel sounds are hypoactive. No rebound. No guarding. No peritoneal sign. EXTREMITIES: No cyanosis. No clubbing. No edema. KJ HERNANDEZ Jul 19, 2016 11:55
[2016-07-19 12:37] VITALS: BP 121/65
[2016-07-19] MEDS ORDERED: Bisacodyl EC 5mg tab ORAL ONE (13:00)
[2016-07-19] MEDS ORDERED: Nulytely 4L ORAL ONE (13:00)
--- NOTE | 2016-07-19 13:08 | Consultation ---
DATE OF CONSULTATION: 07/18/2016 REFERRING PHYSICIAN: Yenifer Cook M.D. REASON FOR CONSULTATION: Hyponatremia. HISTORY OF PRESENT ILLNESS: The patient is a 75-year-old female with a past medical history significant for history of gastritis, hypertension, history of osteoporosis, who presented to [facility] complaining of increasing abdominal pain. She describes her abdominal pain as an epigastric pain. There was no relieving or aggravating factor. There was no radiation. The patient also complained of intractable nausea and vomiting. Upon arrival in the ER, the patient had a CT of the abdomen, which did not reveal any evidence of acute intra-abdominal disease. The patient was also found to have a severe hyponatremia. Consequently, the patient was admitted in the hospital. I was called for management of renal disease and electrolyte imbalance. PAST MEDICAL HISTORY: 1. Hypertension. 2. Anxiety. 3. Gastritis. 4. History of femur fracture. 5. Osteoporosis. PAST SURGICAL HISTORY: History of laminectomy. ALLERGIES: She is allergic to penicillin. SOCIAL HISTORY: She denies any history of tobacco, alcohol, or drug use. FAMILY HISTORY: Noncontributory. MEDICATIONS: 1. Colace 250 mg p.o. b.i.d. 2. Lactulose 10 mg p.o. daily. 3. Alprazolam 0.5 mg p.r.n. 4. Amlodipine 5 mg p.o. daily. 5. Carvedilol 6.25 mg p.o. daily. 6. Methocarbamol 500 mg p.r.n. 7. Heparin 5000 units subcutaneously. 8. Protonix 40 mg p.o. daily. 9. Tylenol 650 mg q.6 h. p.r.n. pain. 10. Zofran 4 mg p.r.n. pain. 11. MiraLAX 17 g p.o. b.i.d. 12. Temazepam 15 mg p.o. at bedtime. 13. Benadryl p.r.n. itching. 14. Nitroglycerin 0.4 mg sublingually p.r.n. chest pain. REVIEW OF SYSTEMS: General: She denies any weight loss, weight gain, fever, chills, or night sweats. Head And Neck: Denies any dysphagia, odynophagia, blurry vision, headache, or neck stiffness. Pulmonary: Denies any shortness of breath, cough, or sputum. Cardiovascular: Denies any chest pain or palpitations. Gastrointestinal: As mentioned in HPI. Genitourinary: Denies any dysuria, frequency, or hematuria. Musculoskeletal: Denies any weakness or numbness. PHYSICAL EXAMINATION: VITAL SIGNS: The patient has a temperature of 97, pulse 67, respiratory rate 18, blood pressure 146/66, and pulse rate 100. HEAD AND NECK: No JVP. No LAD. Dry mucous membranes. Extraocular movements intact. Pupils are reactive to light and accommodation. LUNGS: Clear to auscultation. CARDIAC: Regular rate and rhythm. S1-S2. No murmur. No rub. ABDOMEN: Soft, nontender, and nondistended. EXTREMITIES: Trace edema. No clubbing. No cyanosis. LABORATORY VALUES: On admission, the patient had a sodium of 127, potassium 4, chloride 91, bicarb 23, BUN 5, creatinine 0.5, glucose 106, and calcium 8.6. AST of 21, ALT of 20, total protein 5.8, and albumin 3.2. The patient was found to have a magnesium of 1.6. CBC revealed WBC count of 6, hemoglobin 11, hematocrit 31, and platelet count 239,000. Urine studies revealed urine sodium of 80, specific gravity 1.010, blood 4+, RBCs 5-10, and WBCs 0-2. ASSESSMENT: 1. Hypovolemic hyponatremia. The patient also might have increasing of her secretion of ADH due to intractable nausea and vomiting, although the other urine osmolality and serum osmolality are pending. 2. Hypertension. 3. History of osteoarthritis. PLAN: The plan is for the patient to obtain random urine osmolarity, serum osmolality, urine protein and serum protein for evaluation of proteinuria and give IV normal saline. Free water restriction. Continue with normal saline, although urine potassium needs to be checked. If is less than 150, normal saline actually and the patient needs to be on hypertonic saline, although the patient at this point is asymptomatic and serum sodium actually is more than 127. I would recommend to monitor electrolytes and renal function closely. Again, I would like to thank Dr. Cook for allowing me to participate in the care of this patient. Lillie Lai M.D. DR: PA JOB#: [id number] CC:
[2016-07-19 16:06] VITALS: BP 141/76
[2016-07-19 20:00] VITALS: BP 134/79
--- NOTE | 2016-07-19 22:43 | Pulmonology Progress Note ---
Assessment/Plan Problems: (1) Hyponatremia (2) Abdominal pain (3) Hypertension (4) Intractable back pain Assessment/Plan Na improving slowly Renal note appreciated pain management GI f/u Subjective Interval Events: late note, for 07/18 Constitutional: Reports: no symptoms HEENT: Repors: no symptoms Allergies: Coded Allergies: PENICILLINS (Unverified Allergy, Unknown, 06/24/14) Objective Last 24 Hour Vital Signs Date Time Temp Pulse Resp B/P Pulse Ox O2 Delivery O2 Flow Rate FiO2 07/19/16 21:21 69 134/79 07/19/16 20:00 69 20 134/79 97 Room Air 07/19/16 16:06 95.7 64 20 141/76 100 Room Air 07/19/16 12:37 96.4 67 17 121/65 97 Room Air 07/19/16 08:50 81 147/71 07/19/16 08:50 81 147/71 07/19/16 08:42 97.3 64 18 160/77 100 Room Air 07/19/16 03:55 97.2 54 18 138/52 100 Room Air 07/19/16 00:00 96.6 56 18 134/48 100 Room Air Intake and Output 07/18/16 07/19/16 19:00 07:00 Intake Total 847.5 ml 1265 ml Output Total 200 ml Balance 647.5 ml 1265 ml Intake Oral 360 ml 440 ml IV Total 487.5 ml 825 ml Output Urine Total 200 ml # Voids 1 5 General Appearance: WD/WN HEENT: normocephalic Respiratory/Chest: chest wall non-tender, lungs clear Cardiovascular: normal peripheral pulses Abdomen: normal bowel sounds Genitourinary: normal external genitalia Laboratory Tests 07/19/16 05:30: White Blood Count 4.9, Red Blood Count 3.25L, Hemoglobin 10.2L, Hematocrit 29.8L , Mean Corpuscular Volume 92, Mean Corpuscular Hemoglobin 31.3H, Mean Corpuscular Hemoglobin Concent 34.1, Red Cell Distribution Width 11.5L, Platelet Count 259, Mean Platelet Volume 5.1L, Neutrophils (%) (Auto) 51.2, Lymphocytes (%) (Auto) 28.1, Monocytes (%) (Auto) 15.7H, Eosinophils (%) (Auto) 3.9H, Basophils (%) (Auto) 1.1, Sodium Level 131L, Potassium Level 4.2, Chloride Level 98, Carbon Dioxide Level 22, Anion Gap 11, Blood Urea Nitrogen 7 , Creatinine 0.4L, Estimat Glomerular Filtration Rate , Glucose Level 95, Calcium Level 8.0L, Total Bilirubin 0.3, Aspartate Amino Transf (AST/SGOT) 17, Alanine Aminotransferase (ALT/SGPT) 19, Alkaline Phosphatase 76, Total Protein 5.4L, Albumin 3.0L, Globulin 2.4, Albumin/Globulin Ratio 1.2 Current Medications Medications (Trade) Dose Ordered Sig/Vivian Route PRN Reason Start Time Stop Time Status Last Admin Dose Admin Acetaminophen (Tylenol) 650 mg Q4H PRN ORAL fever 07/17/16 02:15 08/16/16 02:14 Al Hydroxide/Mg Hydroxide (Mylanta II) 30 ml Q6H PRN ORAL dyspepsia 07/17/16 02:15 08/16/16 02:14 Alprazolam (Xanax) 0.25 mg BID ORAL 07/17/16 09:00 07/24/16 08:59 07/19/16 19:01 Amlodipine Besylate (Norvasc) 5 mg DAILY ORAL 07/17/16 09:00 08/16/16 08:59 07/19/16 08:50 Carvedilol (Coreg) 6.25 mg EVERY 12 HOURS ORAL 07/17/16 09:00 08/16/16 08:59 07/19/16 21:21 Dextrose (Dextrose 50%) STAT PRN IV Hypoglycemia 07/17/16 02:15 08/16/16 02:14 Dextrose/ Electrolytes (D5NS W/KCl 20meq 1000ml) 1,000 ml @ 75 mls/hr [id number] IV 07/17/16 02:30 08/16/16 02:29 07/19/16 21:19 Diphenhydramine HCl (Benadryl) 25 mg Q6H PRN ORAL Itching/Pruritis 07/17/16 02:15 08/16/16 02:14 Docusate Sodium (Colace) 250 mg DAILY ORAL 07/18/16 09:00 08/17/16 08:59 07/19/16 11:50 Heparin Sodium (Porcine) (Heparin 5000 units/ml) 5,000 units EVERY 12 HOURS SUBQ 07/17/16 09:00 08/16/16 08:59 07/19/16 21:22 Lactulose (Cephulac) 10 gm THREE TIMES A DAY ORAL 07/17/16 18:00 08/16/16 17:59 07/19/16 13:56 Methocarbamol (Robaxin) 500 mg QID ORAL 07/17/16 09:00 08/16/16 08:59 07/19/16 21:20 Morphine Sulfate (Morphine Sulfate) 2 mg Q4H PRN IVP severe Pain (Pain Scale 7-10) 07/17/16 02:15 07/24/16 02:14 07/17/16 09:48 Nitroglycerin (Ntg) 0.4 mg Q5M X 3 DOSES PRN SL Prn Chest Pain 07/17/16 02:15 08/16/16 02:14 Ondansetron HCl (Zofran) 4 mg Q6H PRN IVP Nausea & Vomiting 07/17/16 02:15 08/16/16 02:14 07/17/16 09:48 Pantoprazole 40 mg 40 mg DAILY IVP 07/17/16 09:00 08/16/16 08:59 07/19/16 08:46 Polyethylene Glycol (Miralax) 17 gm HSPRN PRN ORAL Constipation 07/17/16 02:15 08/16/16 02:14 Temazepam (Restoril) 15 mg HSPRN PRN ORAL Insomnia 07/17/16 02:15 07/24/16 02:14 07/18/16 20:56 AMBER GA Jul 19, 2016 22:43
--- NOTE | 2016-07-19 22:43 | Pulmonology Progress Note ---
Assessment/Plan Problems: (1) Hyponatremia (2) Abdominal pain (3) Hypertension (4) Intractable back pain Assessment/Plan Na improving slowly Renal note appreciated pain management GI f/u Subjective ROS Limited/Unobtainable: No Constitutional: Reports: anorexia, fatigue Gastrointestinal/Abdominal: Reports: bloating, nausea Allergies: Coded Allergies: PENICILLINS (Unverified Allergy, Unknown, 06/24/14) Objective Last 24 Hour Vital Signs Date Time Temp Pulse Resp B/P Pulse Ox O2 Delivery O2 Flow Rate FiO2 07/19/16 21:21 69 134/79 07/19/16 20:00 69 20 134/79 97 Room Air 07/19/16 16:06 95.7 64 20 141/76 100 Room Air 07/19/16 12:37 96.4 67 17 121/65 97 Room Air 07/19/16 08:50 81 147/71 07/19/16 08:50 81 147/71 07/19/16 08:42 97.3 64 18 160/77 100 Room Air 07/19/16 03:55 97.2 54 18 138/52 100 Room Air 07/19/16 00:00 96.6 56 18 134/48 100 Room Air Intake and Output 07/18/16 07/19/16 19:00 07:00 Intake Total 847.5 ml 1265 ml Output Total 200 ml Balance 647.5 ml 1265 ml Intake Oral 360 ml 440 ml IV Total 487.5 ml 825 ml Output Urine Total 200 ml # Voids 1 5 General Appearance: no acute distress HEENT: normocephalic, atraumatic, anicteric, PERRL Respiratory/Chest: chest wall non-tender, decreased breath sounds, accessory muscle use Breasts: no masses Cardiovascular: normal peripheral pulses, normal rate, regular rhythm, no JVD Abdomen: normal bowel sounds, soft, non tender, no organomegaly, non distended Genitourinary: normal external genitalia Extremities: no cyanosis Skin: rash, lesions Neurologic/Psychiatric: payable representative II-XII grossly normal, no motor/sensory deficits Laboratory Tests 07/19/16 05:30: White Blood Count 4.9, Red Blood Count 3.25L, Hemoglobin 10.2L, Hematocrit 29.8L , Mean Corpuscular Volume 92, Mean Corpuscular Hemoglobin 31.3H, Mean Corpuscular Hemoglobin Concent 34.1, Red Cell Distribution Width 11.5L, Platelet Count 259, Mean Platelet Volume 5.1L, Neutrophils (%) (Auto) 51.2, Lymphocytes (%) (Auto) 28.1, Monocytes (%) (Auto) 15.7H, Eosinophils (%) (Auto) 3.9H, Basophils (%) (Auto) 1.1, Sodium Level 131L, Potassium Level 4.2, Chloride Level 98, Carbon Dioxide Level 22, Anion Gap 11, Blood Urea Nitrogen 7 , Creatinine 0.4L, Estimat Glomerular Filtration Rate , Glucose Level 95, Calcium Level 8.0L, Total Bilirubin 0.3, Aspartate Amino Transf (AST/SGOT) 17, Alanine Aminotransferase (ALT/SGPT) 19, Alkaline Phosphatase 76, Total Protein 5.4L, Albumin 3.0L, Globulin 2.4, Albumin/Globulin Ratio 1.2 Current Medications Medications (Trade) Dose Ordered Sig/Vivian Route PRN Reason Start Time Stop Time Status Last Admin Dose Admin Acetaminophen (Tylenol) 650 mg Q4H PRN ORAL fever 07/17/16 02:15 08/16/16 02:14 Al Hydroxide/Mg Hydroxide (Mylanta II) 30 ml Q6H PRN ORAL dyspepsia 07/17/16 02:15 08/16/16 02:14 Alprazolam (Xanax) 0.25 mg BID ORAL 07/17/16 09:00 07/24/16 08:59 07/19/16 19:01 Amlodipine Besylate (Norvasc) 5 mg DAILY ORAL 07/17/16 09:00 08/16/16 08:59 07/19/16 08:50 Carvedilol (Coreg) 6.25 mg EVERY 12 HOURS ORAL 07/17/16 09:00 08/16/16 08:59 07/19/16 21:21 Dextrose (Dextrose 50%) STAT PRN IV Hypoglycemia 07/17/16 02:15 08/16/16 02:14 Dextrose/ Electrolytes (D5NS W/KCl 20meq 1000ml) 1,000 ml @ 75 mls/hr [id number] IV 07/17/16 02:30 08/16/16 02:29 07/19/16 21:19 Diphenhydramine HCl (Benadryl) 25 mg Q6H PRN ORAL Itching/Pruritis 07/17/16 02:15 08/16/16 02:14 Docusate Sodium (Colace) 250 mg DAILY ORAL 07/18/16 09:00 08/17/16 08:59 07/19/16 11:50 Heparin Sodium (Porcine) (Heparin 5000 units/ml) 5,000 units EVERY 12 HOURS SUBQ 07/17/16 09:00 08/16/16 08:59 07/19/16 21:22 Lactulose (Cephulac) 10 gm THREE TIMES A DAY ORAL 07/17/16 18:00 08/16/16 17:59 07/19/16 13:56 Methocarbamol (Robaxin) 500 mg QID ORAL 07/17/16 09:00 08/16/16 08:59 07/19/16 21:20 Morphine Sulfate (Morphine Sulfate) 2 mg Q4H PRN IVP severe Pain (Pain Scale 7-10) 07/17/16 02:15 07/24/16 02:14 07/17/16 09:48 Nitroglycerin (Ntg) 0.4 mg Q5M X 3 DOSES PRN SL Prn Chest Pain 07/17/16 02:15 08/16/16 02:14 Ondansetron HCl (Zofran) 4 mg Q6H PRN IVP Nausea & Vomiting 07/17/16 02:15 08/16/16 02:14 07/17/16 09:48 Pantoprazole 40 mg 40 mg DAILY IVP 07/17/16 09:00 08/16/16 08:59 07/19/16 08:46 Polyethylene Glycol (Miralax) 17 gm HSPRN PRN ORAL Constipation 07/17/16 02:15 08/16/16 02:14 Temazepam (Restoril) 15 mg HSPRN PRN ORAL Insomnia 07/17/16 02:15 07/24/16 02:14 07/18/16 20:56 AMBER GA Jul 19, 2016 22:43
[2016-07-20] VITALS (10 sets, daily range): BP systolic 110–155; BP diastolic 42–82
[2016-07-20] MEDS: Methocarbamol 500mg tab ORAL SCH ×3 (09:00→18:00)
[2016-07-20] MEDS: Heparin 5000 units/ml inj SUBQ SCH (09:00)
[2016-07-20] MEDS: Lactulose 10gm/15ml UDC ORAL SCH ×3 (09:00→18:00)
[2016-07-20] MEDS: ALPRAZolam 0.25mg tab ORAL SCH ×2 (09:00→18:12)
[2016-07-20] MEDS: Docusate 250mg cap ORAL SCH (09:00)
--- NOTE | 2016-07-20 09:00 | Anethesia Preoperative Eval ---
Anesthesia Pre-op PMH/ROS General Date of Evaluation: Jul 20, 2016 Anesthesiologist: Charlie ASA Score: ASA 3 Mallampati Score Class I : Soft palate, uvula, fauces, pillars visible Class II: Soft palate, uvula, fauces visible Class III: Soft palate, base of uvula visible Class IV: Only hard plate visible Mallampati Classification: Class II Surgeon: Leon Diagnosis: Gi bleed Surgical Procedure: EGd/colonoscopy Anesthesia History: none Family History: no anesthesia problems Allergies: Coded Allergies: PENICILLINS (Unverified Allergy, Unknown, 06/24/14) Medications: see eMAR Past Medical History Cardiovascular: Reports: HTN, other - HLD, Denies: CAD, ME, arrhythmia, valve dz Pulmonary: Denies: COPD, CHASIDY, asthma, other Gastrointestinal/Genitourinary: Reports: GERD, other - gastritis, Denies: CRI, ESRD Neurologic/Psychiatric: Reports: depression/anxiety, Denies: CVA, TIA, dementia, other Endocrine: Denies: DM, hypothyroidism, other, steroids HEENT: Denies: [place] (L), [place] (R), cataract (L), cataract (R), glaucoma, other Hematology/Immune: Denies: DVT, anemia, bleeding disorder, other Musculoskeletal/Integumentary: Reports: OA, Denies: DDD, DJD, RA, edema, other PSxH Narrative: Denies Anesthesia Pre-op Phys. Exam Physician Exam Last Vital Signs Date Time Temp Pulse Resp B/P Pulse Ox O2 Delivery O2 Flow Rate FiO2 07/20/16 08:00 97.0 70 20 155/68 100 Room Air Constitutional: NAD Cardiovascular: RRR Respiratory: CTA Airway Exam Mallampati Score: Class II Anesthesia Pre-op A/P Labs se chart Risk Assessment & Plan Assessment: ASA II Plan: MAC Status Change Before Surgery: No Pre-Antibiotics Drug: N/A JAIME GLOVER M.D. Jul 20, 2016 09:00
[2016-07-20] MEDS ORDERED: LR 1000ml 1,000 ML IVLG SCH ×2 (09:27→10:02)
[2016-07-20] MEDS ORDERED: DiphenhydrAMINE 50mg/ml Inj IVP PRN ×2 (09:30→10:15)
[2016-07-20] MEDS ORDERED: Labetalol 5mg/ml 20ml vial IV PRN ×2 (09:30→10:15)
[2016-07-20] MEDS ORDERED: Lidocaine 1% MPF 10mg/ml 5ml ONE (10:00)
[2016-07-20] MEDS ORDERED: Propofol 10mg/ml 20ml IV ONE (10:00)
[2016-07-20] MEDS ORDERED: NS Irrig 1000ml ONE (10:00)
--- NOTE | 2016-07-20 10:01 | Immediate Post-Op Evaluation ---
Immediate Post-Op Evalulation Immediate Post-Op Evalulation Procedure: EGd and colonoscopy Date of Evaluation: Jul 20, 2016 IV Fluids: 200 Blood Products: 0 Estimated Blood Loss: 0 Urinary Output: 0 Blood Pressure Systolic: 110 Blood Pressure Diastolic: 42 Pulse Rate: 53 Respiratory Rate: 16 O2 Sat by Pulse Oximetry: 100 Temperature (Fahrenheit): 97.3 Pain Score (1-10): 0 Nausea: No Vomiting: No Complications 0 Patient Status: awake, reacts, patent, none Hydration Status: adequate Drug: N/A JAIME GLOVER M.D. Jul 20, 2016 10:01
--- NOTE | 2016-07-20 10:01 | 48 Hour Post Anesthesia Eval ---
Post Anesthesia Evaluation Procedure: EGd and colonoscopy Date of Evaluation: Jul 20, 2016 Blood Pressure Systolic: 114 0: 62 Pulse Rate: 59 Respiratory Rate: 16 O2 Sat by Pulse Oximetry: 100 Airway: patent Nausea: No Vomiting: No Hydration Status: adequate Cardiopulmonary Status: at baseline Mental Status/LOC: patient returned to baseline Post-Anesthesia Complications: 0 Follow-up care needed: ready to discharge JAIME GLOVER M.D. Jul 20, 2016 10:01
[2016-07-20] MEDS ORDERED: NS 550ML IV ONE (10:20)
--- NOTE | 2016-07-20 10:20 | Pre-Procedure Note/Attestation ---
Pre-Procedure Note/Attestation Complete Prior to Procedure Planned Procedure: not applicable Procedure Narrative: egd/colon Indications for Procedure Pre-Operative Diagnosis: anemia Attestation I attest that I discussed the nature of the procedure; its benefits; risks and complications; and alternatives (and the risks and benefits of such alternatives ), prior to the procedure, with the patient (or the patient's legal veterans service representative). I attest that, if there was a reasonable possibility of needing a blood transfusion, the patient (or the patient's legal veterans service representative) was given the [facility] standardized written summary, pursuant to the [place] Blood Safety Act ([place] Health and Safety Code # 1645, as amended). I attest that I re-evaluated the patient just prior to the surgery and that there has been no change in the patient's H&P, except as documented below: NATO SLOAN Jul 20, 2016 10:20
[2016-07-20] MEDS: NS IV SCH (10:30)
[2016-07-20] MEDS: KCL IV SCH (10:30)
[2016-07-20] MEDS: D5 IV SCH (10:30)
--- NOTE | 2016-07-20 10:58 | Endoscopy Procedure Note ---
Endoscopy Procedure Note Indication for Procedure: anemia Procedures Performed: EGD, colonoscopy Operative Findings/Diagnosis: 4 polyps Specimen: yes Pt Tolerated Procedure Well: Yes Estimated Blood Loss: none Anesthesiologist: shilpa Anesthesia: MAC Implant(s) used?: No 50 yrs or older w/o bx or poly: Not Applicable 10yrs. F/U not recommended: Not Applicable NATO SLOAN Jul 20, 2016 10:58
--- NOTE | 2016-07-20 12:26 | Nephrology Progress Note ---
Assessment/Plan Assessment 1.Hypovolemic hyponatremia 2.hypocalcemia 3.malnutrition 4.intractable nausea and vomiting 5.HTN Plan Plan to continue current iv monitoring electrolyte closely check prealbumin check vit d replace electrolyte Subjective Constitutional: Reports: no symptoms HEENT: Reports: no symptoms Genitourinary: Reports: no symptoms Neurologic/Psychiatric: Reports: no symptoms Subjective alert and wake no CP or SOB s/p colonoscopy and endoscopy Objective Objective Last 24 Hour Vital Signs Date Time Temp Pulse Resp B/P Pulse Ox O2 Delivery O2 Flow Rate FiO2 07/20/16 11:15 62 13 138/52 100 Room Air 07/20/16 11:08 71 25 127/56 100 Simple Mask 6.0 07/20/16 11:03 65 25 111/44 100 Simple Mask 6.0 07/20/16 11:01 59 16 100 07/20/16 11:00 53 16 100 07/20/16 10:58 97.2 53 16 110/42 100 Simple Mask 6.0 07/20/16 08:00 97.0 70 20 155/68 100 Room Air 07/20/16 04:00 97.3 59 18 129/51 100 Room Air 07/20/16 00:00 97.7 69 20 117/55 97 Room Air 07/19/16 21:21 69 134/79 07/19/16 20:00 69 20 134/79 97 Room Air 07/19/16 16:06 95.7 64 20 141/76 100 Room Air 07/19/16 12:37 96.4 67 17 121/65 97 Room Air Intake and Output 07/19/16 07/20/16 19:00 07:00 Intake Total 840 ml 1225 ml Output Total 1200 ml 1000 ml Balance -360 ml 225 ml Intake Oral 240 ml 1000 ml IV Total 600 ml 225 ml Output Urine Total 1200 ml 1000 ml # Voids 1 2 # Bowel Movements 9 Height (Feet): 4 Height (Inches): 1.00 Weight (Pounds): 120 Objective HEENT: Normocephalic and atraumatic. Sclerae icterus. NECK: Supple. No lymphadenopathy. CARDIOVASCULAR: Regular rhythm. Plus S1 and S2. LUNGS: Decreased breath sounds bilaterally based on the supine exam. ABDOMEN: Soft, mildly distended, and mildly tympanic to percussion. Bowel sounds are hypoactive. No rebound. No guarding. No peritoneal sign. EXTREMITIES: No cyanosis. No clubbing. No edema. KJ HERNANDEZ Jul 20, 2016 12:26
[2016-07-20] MEDS: Carvedilol 6.25mg Tab ORAL SCH (13:12)
[2016-07-20] MEDS: Pantoprazole Inj IVP SCH (13:13)
--- NOTE | 2016-07-20 17:38 | Procedure Note ---
DATE OF PROCEDURE: 07/20/2016 SURGEON: Trent Quintero M.D. PROCEDURE: Colonoscopy with snare polypectomy and biopsy and endoscopy with biopsy. ANESTHESIOLOGIST: Dr. Anguiano. INSTRUMENT: Olympus adult flexible upper endoscope and colonoscope. INDICATION: Anemia. REASON FOR PROCEDURE: The procedure, risks, benefits, and possible consequences, including hemorrhage, aspiration, perforation and infection, and alternative treatments, were explained to the patient/legal guardian by Dr. Trent Quintero and the patient/legal guardian understood and accepted these risks. DESCRIPTION OF PROCEDURE: After informed consent was obtained and the patient was adequately sedated, Olympus upper endoscope was advanced from mouth into the second portion of duodenum and retroflexion was performed in the stomach. The patient had evidence of diffuse gastritis. Random biopsy from antrum of the stomach was obtained to rule out H. pylori infection. At this time, the upper endoscope was retrieved and the patient was turned over for colonoscopy. First, a rectal exam was performed, which was normal. Then, the scope was advanced from the rectum into the cecum documented by appendiceal orifice, ileocecal valve, and right upper quadrant palpation. Quality of prep was . The patient had four polyps in the cecum, two of them removed with snare polypectomy and the other two with cold biopsy forceps technique with the largest polyp was about 6 mm in size. There was no further polyp in the colonoscopy examination. The patient had evidence of diverticulosis in the left colon. Retroflexion of rectum showed evidence of internal hemorrhoids. SUMMARY OF FINDINGS: 1. Four polyps removed, see above for details. 2. Internal hemorrhoids. 3. Diverticulosis. RECOMMENDATIONS: 1. Followup biopsies and treat accordingly. 2. Given poor quality prep, we recommend to get colonoscopy in three years. I want to thank, Dr. Cook, for this kind referral . Trent Quintero M.D. DR: Santos JOB#: [id number] CC: Trent Quintero M.D.; Fax#: [phone] Cook M.D. ; Fax#: [phone]
--- NOTE | 2016-07-20 23:49 | Pulmonology Progress Note ---
Assessment/Plan Problems: (1) Hyponatremia (2) Abdominal pain (3) Hypertension (4) Intractable back pain Assessment/Plan Na improving slowly Renal note appreciated pain management GI f/u Subjective ROS Limited/Unobtainable: No Constitutional: Reports: anorexia, fatigue Gastrointestinal/Abdominal: Reports: nausea Allergies: Coded Allergies: PENICILLINS (Unverified Allergy, Unknown, 06/24/14) Objective Last 24 Hour Vital Signs Date Time Temp Pulse Resp B/P Pulse Ox O2 Delivery O2 Flow Rate FiO2 07/20/16 16:00 97.0 78 20 153/82 100 Room Air 07/20/16 13:13 62 145/71 07/20/16 13:12 62 145/71 07/20/16 12:00 97.0 62 18 145/71 100 Room Air 07/20/16 11:25 97.5 66 14 123/53 100 Room Air 07/20/16 11:15 62 13 138/52 100 Room Air 07/20/16 11:08 71 25 127/56 100 Simple Mask 6.0 07/20/16 11:03 65 25 111/44 100 Simple Mask 6.0 07/20/16 11:01 59 16 100 07/20/16 11:00 53 16 100 07/20/16 10:58 97.2 53 16 110/42 100 Simple Mask 6.0 07/20/16 08:00 97.0 70 20 155/68 100 Room Air 07/20/16 04:00 97.3 59 18 129/51 100 Room Air 07/20/16 00:00 97.7 69 20 117/55 97 Room Air Intake and Output 07/19/16 07/20/16 19:00 07:00 Intake Total 840 ml 1225 ml Output Total 1200 ml 1000 ml Balance -360 ml 225 ml Intake Oral 240 ml 1000 ml IV Total 600 ml 225 ml Output Urine Total 1200 ml 1000 ml # Voids 1 2 # Bowel Movements 9 General Appearance: no acute distress HEENT: normocephalic, atraumatic, PERRL Respiratory/Chest: chest wall non-tender, decreased breath sounds, accessory muscle use Breasts: no masses Cardiovascular: normal peripheral pulses, normal rate, regular rhythm, no JVD Abdomen: hyperactive bowel sounds, distended, guarding, tender, rebound tenderness Genitourinary: normal external genitalia Extremities: no cyanosis Skin: no rash 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
--- NOTE | 2016-07-21 16:48 | Discharge Summary ---
Discharge Summary Hospital Course Date of Admission Jul 16, 2016 at 23:55 Date of Discharge Jul 20, 2016 at 18:27 Admitting Diagnosis Hyponatremia, abd pain. DENG Fadia Castro is a 75 year old female who was admitted on Jul 16, 2016 at 23: 55 for Hyponatremia, Abdominal Pain Hospital Course [id number] Discharge Discharge Disposition Patient was discharged to Home (01) Discharge Diagnoses: Mary Dodd NP Jul 21, 2016 16:48
--- NOTE | 2016-07-22 03:08 | Discharge Summary 2 SIG ---
DATE OF ADMISSION: 07/16/2016 DATE OF DISCHARGE: 07/20/2016 CONSULTANTS: 1. Trent Quintero M.D. 2. Lillie Lai M.D. BRIEF HOSPITAL COURSE: The patient is a 75-year-old female with history of osteoporosis and hypertension, presents with chief complaint and abdominal pain for the last couple of days, which was described to be diffuse and sharp in nature, 8/10. She had similar symptoms in the past. On evaluation, the patient was found to have hyponatremia with sodium level of 116. She had a CT scan of the abdomen and pelvis that showed no acute process with multiple vertebral body compression fracture with evidence of prior T9 vertebral augmentation procedure and L4-L5 laminectomies. Dr. Quintero was consulted for evaluation of abdominal pain. She was given laxatives for constipation. On 07/20/2016, she underwent EGD with colonoscopy with findings of colonic bleed, diverticulosis, and internal hemorrhoids. Dr. Lai was consulted, assessed the patient has hypovolemic hyponatremia and was given IV NS and free water restriction. Urine osmolality was normal. Sodium slowly improved. The patient was eventually discharged home. FINAL DIAGNOSES: 1. Hyponatremia. 2. Hypertension. 3. Malnutrition. 4. Colonic polyps. 5. Internal hemorrhoids. 6. Diverticulosis. Yenifer Cook M.D. I have been assigned to dictate discharge summary on this account and I was not involved in the patient's management. Mary Dodd N.P. DR: Radames JOB#: [id number] CC: GLORY
== END 2016-07-20 18:27 | disposition home or self-care (01) | DRG 641 ==
LOC: EMR 21:26 → 4W 23:55 → EDBEDREQ 07-17 00:03
DX: E87.1 Hypo-osmolality and hyponatremia (principal); E46 Unspecified protein-calorie malnutrition; D64.9 Anemia, unspecified; E83.51 Hypocalcemia; M48.50XA Collapsed vertebra, not elsewhere classified, site unspecified, initial encounter for fracture; I10 Essential (primary) hypertension; K57.90 Diverticulosis of intestine, part unspecified, without perforation or abscess without bleeding; K59.00 Constipation, unspecified; K63.5 Polyp of colon; K64.8 Other hemorrhoids; F41.9 Anxiety disorder, unspecified; M81.0 Age-related osteoporosis without current pathological fracture; Z88.0 Allergy status to penicillin; K29.70 Gastritis, unspecified, without bleeding
CPT/HCPCS: 36415; 74177; 76700; 80053; 81001; 81003; 82150; 82378; 82533; 82570; 82607; 82746; 83540; 83550; 83690; 83735; 83930; 83935; 84100; 84300; 84439; 84443; 84550; 85025; 85730; 94003; 94150; J2405; J8499

== ENCOUNTER 2017-01-14 19:12 | Emergency (ER) | payer OTHER, MEDICAID ==
[~2017-01-14] VITALS: Ht 122.6 cm; Wt 41.7 kg
[~2017-01-14 19:12] MED LIST changes: +LEVOFLOXACIN750 MG ORAL; +PRAVASTATIN SOD20 M1 ORAL; +TRIBENZOR 40-11 EACH ORAL
[2017-01-14] MEDS ORDERED: Morphine Sulfate 2mg/ml Inj IVP ONE (19:30)
[2017-01-14 19:58] VITALS: BP 144/58
[2017-01-14 20:01] LABS: BASOPHILS % (AUTO) 0.9 % (0.0-2.0); EOSINOPHILS % (AUTO) 1.8 % (0.0-3.0); LYMPHOCYTES % (AUTO) 26.1 % (20.0-45.0); MEAN CORPUSCULAR HEMOGLOBIN 33.7 PG (27.0-31.0); MEAN CORPUSCULAR HGB CONC 35.5 G/DL (32.0-36.0); MEAN CORPUSCULAR VOLUME 95 FL (80-99); MEAN PLATELET VOLUME 4.9 FL (6.5-10.1); MONOCYTES % (AUTO) 8.6 % (1.0-10.0); NEUTROPHILS % (AUTO) 62.6 % (45.0-75.0); PLATELET COUNT 319 K/UL (150-450); RED BLOOD COUNT 3.52 M/UL (4.20-5.40); RED CELL DISTRIBUTION WIDTH 12.2 % (11.6-14.8); WHITE BLOOD COUNT 7.9 K/UL (4.8-10.8)
[2017-01-14 20:25] LABS: TROPONIN I < 0.30 ng/mL (<=0.30)
[2017-01-14 20:27] LABS: ALANINE AMINOTRANSFERASE 22 U/L (3-33); ALBUMIN/GLOBULIN RATIO 1.2 (1.0-2.7); ANION GAP 12 (5-15); ASPARTATE AMINO TRANSFERASE 19 U/L (5-40); CALCIUM 10.2 mg/dL (8.6-10.2); CARBON DIOXIDE 24 mEQ/L (20-30); CHLORIDE 95 mEQ/L (98-107); CREATININE 0.7 mg/dL (0.5-0.9); HEMOLYSIS 8; LIPASE 10 U/L (< 60); SODIUM 131 mEQ/L (135-145); TOTAL PROTEIN 7.1 g/dL (6.6-8.7)
[2017-01-14 20:27] LABS: APPEARANCE,URINE CLEAR; KETONES,URINE NEGATIVE (NEGATIVE); LEUKOCYTE ESTERASE ,URINE 3+ (NEGATIVE); NITRITE,URINE NEGATIVE (NEGATIVE); PH,URINE 7 (4.5-8.0); PROTEIN,URINE NEGATIVE (NEGATIVE); UROBILINOGEN,URINE NORMAL MG/DL (0.0-1.0)
[2017-01-14 20:36] LABS: WBC,URINE 0-2 /HPF (0 - 2)
[2017-01-14 20:37] LABS: BACTERIA,URINE OCCASIONAL /HPF; SQUAMOUS EPITHELIAL CELL,UR OCCASIONAL /LPF (NONE/OCC)
[2017-01-14 21:57] VITALS: BP 162/89
[2017-01-14] MEDS ORDERED: RANITIDINE HCL150 MG ORAL (22:15)
[2017-01-14] MEDS ORDERED: COLACE100 MG ORAL (22:15)
[2017-01-14 22:32] VITALS: BP 162/89
--- NOTE | 2017-01-14 22:35 | Emergency Room Report ---
History of Present Illness General Chief Complaint: Abdominal Pain Source: Patient, Family Member Present Illness HPI 76-year-old female presents ED complaining of abdominal pain x4 days. Pain is left-sided, sharp, 9/10, radiating towards the left flank. Denies fevers or chills. Denies nausea or vomiting. Denies chest pain or shortness of breath. No other aggravating relieving factors. Denies any other associated symptoms Allergies: Coded Allergies: PENICILLINS (Unverified Allergy, Unknown, 06/24/14) Patient History Past Medical History: HTN, GERD, GI bleed Past Surgical History: none Pertinent Family History: none Social History: Denies: smoking, alcohol use, drug use Now: No Immunizations: UTD Reviewed Nursing Documentation: PMH: Agreed, PSxH: Agreed Nursing Documentation-PMH Hx Cardiac Problems: Yes - high cholesterol Hx Hypertension: Yes Hx Cancer: No Hx Gastrointestinal Problems: Yes - Gastritis Hx Neurological Problems: No Review of Systems All Other Systems: negative except mentioned in HPI Physical Exam Vital Signs Date Time Temp Pulse Resp B/P (MAP) Pulse Ox O2 Delivery O2 Flow Rate FiO2 01/14/17 19:17 98.2 55 17 156/60 100 Room Air Sp02 EP Interpretation: reviewed, normal General Appearance: no apparent distress, alert, GCS 15, non-toxic Head: normocephalic, atraumatic Eyes: bilateral eye normal inspection, bilateral eye PERRL ENT: hearing grossly normal, normal pharynx, no angioedema, normal voice Neck: full range of motion, supple/symm/no masses Respiratory: chest non-tender, lungs clear, normal breath sounds, speaking full sentences Cardiovascular #1: regular rate, rhythm, no edema Cardiovascular #2: 2+ carotid (R), 2+ carotid (L), 2+ radial (R), 2+ radial (L) , 2+ dorsalis pedis (R), 2+ dorsalis pedis (L) Gastrointestinal: normal bowel sounds, soft, non-distended, no guarding, no rebound, tenderness - L sided Rectal: deferred Genitourinary: normal inspection, no CVA tenderness Musculoskeletal: back normal, gait/station normal, normal range of motion, non- tender Neurologic: alert, oriented x3, responsive, motor strength/tone normal, sensory intact, speech normal Psychiatric: judgement/insight normal, memory normal, mood/affect normal, no suicidal/homicidal ideation Reflexes: 3+ bicep (R), 3+ bicep (L), 3+ tricep (R), 3+ tricep (L), 3+ knee (R) , 3+ knee (L) Skin: normal color, no rash, warm/dry, well hydrated Lymphatic: no adenopathy Medical Decision Making Diagnostic Impression: Primary Impression: Constipation Qualified Codes: K59.00 - Constipation, unspecified Additional Impression: Abdominal pain Qualified Codes: R10.32 - Left lower quadrant pain ER Course Hospital Course 76-year-old F presents to ED with abdominal pain Differential diagnosis includes-appendicitis, cholecystitis, small bowel obstruction, gastritis, Clinical course Patient placed on stretcher. After initial history and physical I ordered labs , IV fluids, pain medications and CT scan Labs - no leukocytosis, electrolytes ok, LFTs normal, UA unremarkable CT scan shows no acute pathology, evidence of gastritis, diverticulosis, no diverticulitis Upon reassessment, patient states pain has improved. Given improvement in symptoms and lack of acute findings, I believe patient can be safely discharged to home. Discussed findings with family I feel this is a highly complex case requiring extensive working including EKG/ Rhythm strip, Xray/CT/US, Blood/urine lab work, repeat exams while in ED, and administration of strong opiates/narcotics for pain control, admission to hospital or close patient follow up. Diagnosis - constiaption, abdominal pain Stable and discharged to home with Rx colace, zantac. Followup with PMD. Return to ED if symptoms recur or worsen Labs Test 01/14/17 19:28 01/14/17 20:13 White Blood Count 7.9 K/UL (4.8-10.8) Red Blood Count 3.52 M/UL (4.20-5.40) Hemoglobin 11.9 G/DL (12.0-16.0) Hematocrit 33.5 % (37.0-47.0) Mean Corpuscular Volume 95 FL (80-99) Mean Corpuscular Hemoglobin 33.7 PG (27.0-31.0) Mean Corpuscular Hemoglobin Concent 35.5 G/DL (32.0-36.0) Red Cell Distribution Width 12.2 % (11.6-14.8) Platelet Count 319 K/UL (150-450) Mean Platelet Volume 4.9 FL (6.5-10.1) Neutrophils (%) (Auto) 62.6 % (45.0-75.0) Lymphocytes (%) (Auto) 26.1 % (20.0-45.0) Monocytes (%) (Auto) 8.6 % (1.0-10.0) Eosinophils (%) (Auto) 1.8 % (0.0-3.0) Basophils (%) (Auto) 0.9 % (0.0-2.0) Sodium Level 131 mEQ/L (135-145) Potassium Level 4.0 mEQ/L (3.4-4.9) Chloride Level 95 mEQ/L (98-107) Carbon Dioxide Level 24 mEQ/L (20-30) Anion Gap 12 (5-15) Blood Urea Nitrogen 14 mg/dL (7-23) Creatinine 0.7 mg/dL (0.5-0.9) Estimat Glomerular Filtration Rate mL/min (>60) Glucose Level 110 mg/dL (74-106) Calcium Level 10.2 mg/dL (8.6-10.2) Total Bilirubin 0.3 mg/dL (0.0-1.2) Aspartate Amino Transf (AST/SGOT) 19 U/L (5-40) Alanine Aminotransferase (ALT/SGPT) 22 U/L (3-33) Alkaline Phosphatase 174 U/L (35-104) Troponin I < 0.30 ng/mL (<=0.30) Total Protein 7.1 g/dL (6.6-8.7) Albumin 3.9 g/dL (3.5-5.2) Globulin 3.2 g/dL Albumin/Globulin Ratio 1.2 (1.0-2.7) Lipase 10 U/L (< 60) Urine Color Pale yellow Urine Appearance Clear Urine pH 7 (4.5-8.0) Urine Specific [place] 1.005 (1.005-1.035) Urine Protein Negative (NEGATIVE) Urine Glucose (UA) Negative (NEGATIVE) Urine Ketones Negative (NEGATIVE) Urine Occult Blood 2+ (NEGATIVE) Urine Nitrite Negative (NEGATIVE) Urine Bilirubin Negative (NEGATIVE) Urine Urobilinogen Normal MG/DL (0.0-1.0) Urine Leukocyte Esterase 3+ (NEGATIVE) Urine RBC 2-4 /HPF (0 - 2) Urine WBC 0-2 /HPF (0 - 2) Urine Squamous Epithelial Cells Occasional /LPF Urine Bacteria Occasional /HPF (NONE) EKG Diagnostic Results Rate: bradycardiac Rhythm: NSR ST Segments: no acute changes ASA given to the pt in ED: No Rhythm Strip Diag. Results EP Interpretation: yes Rhythm: NSR, no PVC's, no ectopy CT/MRI/US Diagnostic Results CT/MRI/US Diagnostic Results : Imaging Test Ordered: CT A/P Impression Equivocal wall thickening in the distal gastric antrum, possibly artifact of under distention but gastritis not excludable. Correlate with clinical findings No acute process otherwise. Equivocal diverticulosis. No evidence of diverticulitis. Last Vital Signs Date Time Temp Pulse Resp B/P (MAP) Pulse Ox O2 Delivery O2 Flow Rate FiO2 01/14/17 21:57 98.2 52 15 162/89 100 Room Air Status: improved Disposition: HOME, SELF-CARE Condition: Stable Scripts Docusate Sodium* (COLACE*) 100 Mg Capsule 100 MG ORAL THREE TIMES A DAY, #30 CAP Prov: JIMMIE GARCIA M.D. 01/14/17 Ranitidine Hcl* (ZANTAC*) 150 Mg Tablet 150 MG ORAL TWICE A DAY, #30 TAB Prov: JIMMIE GARCIA M.D. 01/14/17 Referrals: OTHER,REFERRING (PCP) Patient Instructions: Gastritis, Adult JIMMIE GARCIA M.D. Jan 14, 2017 22:34
--- NOTE | 2017-01-15 09:24 | Diagnostic Imaging Report ---
Clinical Indication: Abdominal pain with left-sided flank pain x4 days with nausea Technique: No oral contrast utilized, per emergency room physician request IV administration nonionic contrast. Venous phase spiral acquisition obtained through the abdomen and pelvis. Multiplanar reconstructions were generated. Total dose length product 467 mGycm. CTDIvol(s) 11 mGy. Dose reduction achieved using automated exposure control Comparison: 07/16/2016 Findings: Normal appendix. There is equivocal sigmoid diverticulosis. No evidence of diverticulitis. No small bowel distention. There is questionably a small sliding-type hiatal hernia. The distal gastric antrum is equivocally somewhat thickwalled, although this could be an artifact of under distention. The duodenum is unremarkable. No free or loculated intraperitoneal air or fluid is evident. The liver, gallbladder, bile ducts are unremarkable. The pancreatic head and uncinate process are fatty replaced. No gross mass demonstrated. The spleen, adrenals, left kidney are unremarkable. The right kidney demonstrates a subcentimeter low-attenuation lesion which is too small to characterize. No retroperitoneal or mesenteric mass or adenopathy. No pelvic mass or adenopathy There are healed fracture deformities of the left superior and inferior pubic rami which were not evident previously. The bones are diffusely osteoporotic. There is evidence of L4 prior L4 and L5 laminectomy. There is evidence of prior T9 vertebral augmentation procedure. There are multiple lower thoracic and upper lumbar compression fracture deformities. Impression: Equivocal wall thickening in the distal gastric antrum, possibly artifact of under distention but gastritis not excludable. Correlate with clinical findings No acute process otherwise Equivocal diverticulosis. No evidence of diverticulitis. Healed fracture deformities of the left superior and inferior pubic rami. Not acute, but not evident previously Multiple thoracic and upper lumbar compression fracture deformities, also described previously. Evidence of prior T9 vertebral body augmentation procedure Fatty replacement of the pancreatic head and uncinate process Right renal subcentimeter low-attenuation lesion, too small to characterize, most likely a benign simple cyst. No further followup necessary This agrees with the preliminary interpretation provided overnight by [facility] teleradiology service. The CT scanner at [facility] is accredited by the [employer] and the scans are performed using protocols designed to limit radiation exposure to as low as reasonably achievable to attain images of sufficient resolution adequate for diagnostic evaluation.
--- NOTE | 2017-01-15 19:03 | Cardiology Report ---
APPROVED REPORT EKG Measurement Heart [id number] Sinus bradycardia Possible Lateral infarct, age undetermined Abnormal ECG
== END 2017-01-14 22:32 | disposition home or self-care (01) ==
LOC: EMR 19:48
DX: K59.00 Constipation, unspecified (principal); R10.9 Unspecified abdominal pain; I10 Essential (primary) hypertension; K21.9 Gastro-esophageal reflux disease without esophagitis; Z87.19 Personal history of other diseases of the digestive system; Z88.0 Allergy status to penicillin; K57.30 Diverticulosis of large intestine without perforation or abscess without bleeding
CPT/HCPCS: 36415; 74177; 80053; 81003; 83690; 84484; 85025; 93005; 96361; 96374; 96375; 99284; J2270; J2405; J7040; Q9967